=== PATIENT | female | born 1980 | race Two or more races ===

== ENCOUNTER 2022-10-12 16:14 | Emergency (ER) | payer SELFPAY ==
[~2022-10-12] VITALS: Ht 157.5 cm; Wt 55.0 kg
[2022-10-12] MEDS ORDERED: methylPREDNISolone SOD SUCC 125 MG/2 ML VL IM ONE (19:45)
[2022-10-12] MEDS ORDERED: cefTRIAXone SOD 1,000 MG VL IM ONE (19:45)
[2022-10-12] MEDS ORDERED: PRED20TA2 PO (19:46)
[2022-10-12] MEDS ORDERED: AZIT250T9 PO (19:46)
[2022-10-12 21:26] VITALS: BP 109/49
== END 2022-10-12 21:25 | disposition home or self-care (01) ==
LOC: ER 16:14
DX: J18.9 Pneumonia, unspecified organism (principal); H92.03 Otalgia, bilateral
CPT/HCPCS: 71045; 96372; 99283; J0696